=== PATIENT | male | born 1945 | race Caucasian/White ===

== ENCOUNTER 2023-08-08 08:58 | Day surgery (SDC) | payer MEDICARE ==
[2023-08-08] MEDS ORDERED: Epinephrine Preservative Free 1 MG/ML IJ ONE (08:59)
[2023-08-08] MEDS ORDERED: BETADINE 5% OPHTHALMIC 30 ML OP ONE (09:00)
[2023-08-08] MEDS ORDERED: cefUROXime sodium 0.005 GM in Sodium Chloride Flush 30 ML*** 0.5 ML IJ ONE (09:00)
[2023-08-08] MEDS ORDERED: NON-FORMULARY ITEM OP ONE (09:00)
[2023-08-08] MEDS ORDERED: Zofran 4 MG/2 ML VIAL IV PRN (11:15)
[2023-08-08] MEDS ORDERED: Lactated Ringers 1,000 ML IV ONE (11:29)
[2023-08-08] MEDS: Lactated Ringers 1,000 ML IV SCH (11:34)
[2023-08-08] MEDS: TETRACAINE 0.5% STERI-UNIT SOL OP ONE ×2 (11:46→12:20)
[2023-08-08] MEDS: Ak-Dilate OPHTHALMIC*** 1.065 ML, Cyclogyl 1% OPHTH SOL 1.065 ML, GATIFLOXACIN 0.5% OPH... OP ONE (11:47)
[2023-08-08] MEDS ORDERED: DIPRIVAN 200 MG/20 ML IV ONE (14:41)
[2023-08-08] MEDS ORDERED: SUBLIMAZE 100 MCG/2 ML ONE (14:42)
[2023-08-08] MEDS ORDERED: Versed 2 MG/2 ML Injection ONE (14:42)
[2023-08-08] MEDS ORDERED: ROBINUL ONE (14:48)
[2023-08-08 15:12] VITALS: RESP 16; TEMP 97.5
[2023-08-08 15:16] VITALS: PULSE 54
[2023-08-08] MEDS: ACETAZOLAMIDE 250 MG TABLET PO ONE (15:17)
[2023-08-08 15:23] VITALS: BP 151/79; O2SAT 96
== END 2023-08-08 15:29 | disposition home or self-care (01) ==
LOC: SDC 08:58
PROVIDERS: ATTEND Ophthalmology
DX: H25.811 Combined forms of age-related cataract, right eye (principal)
CPT/HCPCS: C1780; J0171; J2250; J2704; J3010; A9270-GY

== ENCOUNTER 2023-10-10 07:25 | Day surgery (SDC) | payer MEDICARE ==
[~2023-10-10 07:25] MED LIST: BETADINE 5% OPHTHALMIC 30 ML OP ONE; MOXIFLOXACIN 4 MG/0.8 ML VIAL IO ONE; TRIAMCINOLONE 15 MG/ML INJ INTRAOP ONE
[2023-10-10] MEDS ORDERED: Epinephrine Preservative Free 1 MG/ML IJ ONE (07:26)
[2023-10-10] MEDS ORDERED: Lactated Ringers 1,000 ML IV ONE (07:39)
[2023-10-10 07:56] VITALS: RESP 18
[2023-10-10] MEDS: Lactated Ringers 1,000 ML IV SCH (07:57)
[2023-10-10] MEDS: Ak-Dilate OPHTHALMIC*** 1.065 ML, Cyclogyl 1% OPHTH SOL 1.065 ML, GATIFLOXACIN 0.5% OPH... OP ONE (07:58)
[2023-10-10] MEDS: TETRACAINE 0.5% STERI-UNIT SOL OP ONE ×2 (07:58→08:49)
[2023-10-10] MEDS ORDERED: Lactated Ringers 1,000 ML IV SCH (08:00)
[2023-10-10] MEDS ORDERED: Zofran 4 MG/2 ML VIAL IV PRN (09:30)
[2023-10-10] MEDS ORDERED: DIPRIVAN 200 MG/20 ML IV ONE (09:51)
[2023-10-10 10:19] VITALS: TEMP 96.9
[2023-10-10 10:27] VITALS: O2SAT 96
[2023-10-10] MEDS: ACETAZOLAMIDE 250 MG TABLET PO ONE (10:27)
[2023-10-10 10:32] VITALS: BP 166/85; PULSE 50
== END 2023-10-10 10:41 | disposition home or self-care (01) ==
LOC: SDC 07:25
PROVIDERS: ATTEND Ophthalmology
DX: H25.812 Combined forms of age-related cataract, left eye (principal)
CPT/HCPCS: 99100; C1780; J0171; J2704; A9270-GY

== ENCOUNTER 2024-12-04 06:43 | Day surgery (SDC) | payer MEDICARE ==
[2024-12-04] MEDS ORDERED: VANCOCIN INJECTION IV ONE (06:44)
[2024-12-04] MEDS ORDERED: CEFAZOLIN SODIUM ONE ×2 (06:53→16:27)
[2024-12-04] MEDS ORDERED: TRANEXAMIC 1,000 MG/100ML-NACL 1,000 MG/100 ML PIGGYBACK IV ONE (06:54)
[2024-12-04] MEDS ORDERED: TYLENOL EXTRA STRENGTH 500 MG ONE (06:54)
[2024-12-04] MEDS ORDERED: celeBREX 100 MG ONE (06:54)
[2024-12-04] MEDS ORDERED: Decadron 4 MG ONE (06:55)
[2024-12-04] MEDS ORDERED: Lactated Ringers 1,000 ML IV ONE (06:55)
[2024-12-04] MEDS: celeBREX 100 MG PO ONE (07:01)
[2024-12-04] MEDS: TRANEXAMIC 1,000 MG/100ML-NACL 1,000 MG/100 ML PIGGYBACK IV ONE (07:01)
[2024-12-04] MEDS: TYLENOL EXTRA STRENGTH 500 MG PO ONE (07:02)
[2024-12-04] MEDS: Decadron 4 MG PO ONE (07:02)
[2024-12-04] MEDS: Lactated Ringers 1,000 ML IV SCH (07:14)
[2024-12-04] MEDS ORDERED: Versed 2 MG/2 ML Injection ONE ×2 (08:47→09:10)
[2024-12-04] MEDS ORDERED: Naropin 0.5% 30 ML VIAL ONE (08:47)
[2024-12-04] MEDS ORDERED: propofoL IV ONE ×2 (09:10→10:11)
[2024-12-04] MEDS ORDERED: Astramorph-Pf 5 MG/10 ML ONE (09:13)
--- NOTE | 2024-12-04 11:52 | XRAY ---
Indication: Postop exam. Comparison: July 02, 2024 AP/crosstable lateral right knee now demonstrates intact total knee arthroplasty with postoperative soft tissue swelling/emphysema and small effusion. Stable osteopenia and scattered vascular calcifications. No other bony, articular, or soft tissue abnormalities.
[2024-12-04] MEDS ORDERED: ZOFRAN ODT 4 MG PO PRN (13:25)
[2024-12-04] MEDS ORDERED: NORCO 10-325 MG PO PRN (13:25)
[2024-12-04] MEDS ORDERED: Sodium Chloride 0.9% 10 ML FLUSH Syringe IJ PRN (13:30)
[2024-12-04] MEDS ORDERED: Narcan 0.4 MG/ML IV PRN (13:30)
[2024-12-04] MEDS ORDERED: PERCOCET TABLET 5/325MG PO PRN (13:30)
[2024-12-04] MEDS ORDERED: Nubain 10 MG/ML IV PRN (13:30)
[2024-12-04] MEDS ORDERED: CLARITIN 10 MG PO PRN (13:30)
[2024-12-04] MEDS ORDERED: MORPHINE SULFATE 2 MG INJ IV PRN (13:30)
[2024-12-04] MEDS ORDERED: NON-FORMULARY ITEM (Bisoprolol/Hydrochlorothiazide [Bisoprolol-Hctz 10-6.25 Mg Tab] 1 EACH PO SCH (13:30)
[2024-12-04] MEDS ORDERED: DEMEROL 50 MG IV PRN (13:30)
[2024-12-04] MEDS ORDERED: BENADRYL 50 MG/ML IV PRN (13:30)
[2024-12-04] MEDS ORDERED: Zofran 4 MG/2 ML VIAL IV PRN (13:30)
[2024-12-04 13:48] LABS: BASOPHIL % 0.2 % (0.2-1.2); Basophil (Absolute #) 0.02 x10^3/uL (0.01-0.08); Eosinophil (Absolute #) 0.03 x10^3/uL (0.04-0.54); Hematocrit 39.4 % (40.1-51.0); Hemoglobin 13.0 g/dL (13.7-17.5); IMMATURE GRAN # 0.04 x10^3u/L (0.001-0.031); IMMATURE GRAN % 0.4 % (0.001-0.429); Lymphocyte (Absolute #) 1.13 x10^3/uL (1.32-3.57); Mean Corpuscular Hemoglobin 28.7 pg (25.7-32.2); Mean Corpuscular Hgb Concent. 33.0 g/dL (32.3-36.5); Monocyte (Absolute #) 0.09 x10^3/uL (0.30-0.82); NUCLEATED RBC # 0.00 x10^3u/L (0.00-0.012); NUCLEATED RBC % 0.0 % (0.00-0.2); Platelet Count 241 x10^3/uL (163-337); Red Blood Count 4.53 x10^6/uL (4.63-6.08); White Blood Count 9.4 x10^3/uL (4.23-9.07)
[2024-12-04] MEDS: NORVASC 5 MG PO SCH (13:54)
[2024-12-04] MEDS: Protonix 40MG Tablet PO SCH (13:54)
[2024-12-04] MEDS: Ecotrin 325 MG PO SCH (13:54)
[2024-12-04] MEDS: SYNTHROID 100 MCG PO SCH (13:54)
[2024-12-04] MEDS: THERAGRAN MULTIVITAMIN PO SCH (13:54)
[2024-12-04] MEDS: ZOCOR 20MG PO SCH (13:54)
[2024-12-04] MEDS ORDERED: MEDICATION INTERVENTION MC SCH (14:00)
[2024-12-05 05:00] LABS: Hematocrit 37.4 % (40.1-51.0); Hemoglobin 12.0 g/dL (13.7-17.5); Mean Corpuscular Hemoglobin 28.2 pg (25.7-32.2); Mean Corpuscular Hgb Concent. 32.1 g/dL (32.3-36.5); Platelet Count 248 x10^3/uL (163-337); Red Blood Count 4.25 x10^6/uL (4.63-6.08); White Blood Count 12.5 x10^3/uL (4.23-9.07)
[2024-12-05 06:58] VITALS: O2SAT 98
[2024-12-05 07:01] VITALS: RESP 16
[2024-12-05] MEDS ORDERED: HOLD NARCOTIC ANALGESICS AND SEDATIVES X24 HR MC SCH (10:00)
[2024-12-05] MEDS: ULTRAM 50 MG PO SCH (10:33)
--- NOTE | 2024-12-05 11:04 | OP ---
SURGERY DATE/TIME: 12/04/2024 [id number] PREOPERATIVE DIAGNOSIS: Severe, advanced osteoarthritis of the right knee. POSTOPERATIVE DIAGNOSIS: Severe, advanced osteoarthritis of the right knee. PROCEDURE: Right total knee replacement arthroplasty utilizing the [employer] instrumentation with a size 10 femoral component press-fit, a size G tibial component cemented, an 11 mm tibial polyethylene tray, and a 28 mm x 8 mm single peg all-poly patella cemented. SURGEON: Dilip Ortega II, DO ANESTHESIA: General with a block for postop pain control. DESCRIPTION OF PROCEDURE AND FINDINGS: The patient was identified and informed consent was obtained. The patient was taken to the operative suite and placed into the supine position on the operating table where the general anesthetic was administered. It should be noted that the block had been administered in the preop holding area. Once an appropriate level of anesthesia had been obtained, the tourniquet was placed high on the right thigh. The right lower extremity was then prepped and draped in the usual sterile fashion. A standard time-out was taken. At this point, the foot was placed into the boot for the knee rangel and exsanguinated. The tourniquet was elevated to 350 mmHg. The knee was placed into about 35 to 40 degrees of flexion in the knee rangel and standard midline incision was accomplished. Skin was incised. Dissection was carried out through the subcutaneous tissue. A standard medial parapatellar incision was accomplished. Upon entering the joint, hard, eburnated bone was noted throughout the entire weightbearing surface of both medial and lateral femoral condyles. There was extensive wear on the medial tibial plateau with some bone loss. The patellofemoral joint also had significant degenerative changes. At this point, a portion of the infrapatellar fat pad, the medial and lateral menisci were excised for visualization. The anterior cruciate ligament was also excised. At this point, Z-retractors were repositioned and attention was turned to the femur where the femoral guide was placed and drill holes were then accomplished. The distal femoral cutting block was applied and the distal femoral cut was accomplished. The 4-in-1 cutting block was applied and impacted to previously made drill holes from the guide. The anterior, posterior, and chamfer cuts were made. The wafers of bone were removed. At this point, our attention was turned to the tibial side. Any remaining portion of menisci were excised. A bone hook was utilized to elevate the gap and an osteotome was utilized to remove small posterior osteophytes on the posterior femoral condyles. These were then removed with a curette. Following this, the tibial guide was placed. Drill holes were then made in the tibia for the cutting block. The block was applied and it was deemed that the patient will probably require an extra 2 mm of resection. The guide was then repositioned so that two extra millimeters of tibia could be resected. This was accomplished. At this point, this seem to resect almost all of the deformed area, except for one very small edge on the corner, most of which was removed when removing the osteophytes. Drill holes were then placed in a small area for interdigitation of cement. Trial tibial component was applied and held with its pins in appropriate rotation. The trial femoral component was then impacted into position and trial reduction showed that the 11 mm polyethylene was the appropriate size to give excellent soft tissue balance and extension throughout the entire arc of motion to flexion greater than 135 degrees. At this point, the drill holes were made in the femur for the pegs on the permanent component. The patellar button was then milled utilizing the milling device. The pre-resection height was then remeasured with the trial and restored the pre-resection height adequately. Any osteophytes were removed from the patella and at this point, tracking was noted to be excellent. Trial instrumentation was removed from the patella and the femur as well as the tibial trial tray and the proximal tibial trial was then utilized as the guide for the cruciate stem, which was then impacted and made. All instrumentation was removed. The joint was copiously irrigated with the pulsed foreign correspondent. The cement was vacuum mixed. Following this, the cement was then injected into the interstices of the bone with the cement gun. The tibial component was then cemented into position. Excess cement was removed during the curing process. The femoral component was then press-fit into position. The 11 mm tibial trial was then reinserted and the knee was held in extension during the curing process. Again, any remaining cement was removed. The patellar button was then cemented into position and held with its clamp. At this point, all excess cement had been removed and the cement had fully cured. The knee was again placed through a range of motion and had excellent stability in all planes of motion and there was excellent tracking of the patella. The trial tibial tray was then removed. The joint was then irrigated and a permanent tibial component was applied and locked into position. At this point, the joint was irrigated and closed with #2 Stratafix, 2-0 Monocryl, and subcuticular 3-0 Stratafix augmented with Dermabond. An Aquacel dressing was then applied. The patient was then transferred to the cart and taken to the recovery room in satisfactory condition, having tolerated the procedure well.
[2024-12-05 11:30] VITALS: BP 135/62; PULSE 76; TEMP 98.6
[2024-12-05] MEDS ORDERED: NORCO 5/325 MG PO PRN (13:30)
[2024-12-05] MEDS ORDERED: Hydromorphone 1 mg/ml Injection IV PRN (13:30)
== END 2024-12-05 10:55 | disposition home or self-care (01) ==
LOC: SDC 06:43 → MED SURG 11:57 → SDC 12-05 10:55
PROVIDERS: ATTEND Orthopaedic Surgery
DX: M17.11 Unilateral primary osteoarthritis, right knee (principal); I10 Essential (primary) hypertension
CPT/HCPCS: 01402; 27447; 36415; 64447; 73560; 76942; 85025; 85027; 94760; 97110; 99100; C1713; C1776